=== PATIENT | male | born 2000 | race Hispanic/Latino ===

== ENCOUNTER 2021-01-16 22:17 | Emergency (ER) | payer OTHER ==
[~2021-01-16] VITALS: Ht 182.9 cm; Wt 74.8 kg
[2021-01-16 22:32] VITALS: BP 144/89
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
[2021-01-16] MEDS ORDERED: TORADOL IM STA (22:38)
[2021-01-16] MEDS ORDERED: TORADOL ONE (22:38)
== END 2021-01-16 22:44 | disposition home or self-care (01) ==
LOC: ER 22:17
DX: R07.89 Other chest pain (principal); V43.52XA Car driver injured in collision with other type car in traffic accident, initial encounter; Y93.89 Activity, other specified; Y92.488 Other paved roadways as the place of occurrence of the external cause; Y99.8 Other external cause status
CPT/HCPCS: 96372; 99283; J1885